=== PATIENT | male | born 1995 | race Caucasian/White ===

== ENCOUNTER 2017-08-25 18:06 | Emergency (ER) | payer MEDICAID ==
[~2017-08-25] VITALS: Ht 180.3 cm; Wt 145.0 kg
[~2017-08-25 18:06] MED LIST: augmentin; levaquin; tramadol
[2017-08-25 18:12] VITALS: BP 143/72
== END 2017-08-25 22:50 | disposition left against medical advice (07) ==
LOC: ER 20:54
DX: Z53.21 Procedure and treatment not carried out due to patient leaving prior to being seen by health care provider (principal)